=== PATIENT | female | born 1980 | race African-American/Black ===

== ENCOUNTER 2018-03-17 17:08 | Emergency (ER) | payer BC ==
[~2018-03-17] VITALS: Ht 165.1 cm; Wt 117.9 kg
[~2018-03-17 17:08] MED LIST: APAP/CODEINE ELI5 M1 OR; FLEXERIL PO; HYDROCODONE-AP1 EAC6 PO; LISINOPRIL10 MG PO; LISINOPRIL20 MG PO; NAPROSYN250 MG PO; NAPROSYN500 MG PO; PROTONIX40 M1 PO; ZPAK PO
[2018-03-17 17:44] LABS: URINE BILIRUBIN 1+ (Negative); URINE BLOOD 3+ (Negative); URINE CLARITY CLEAR; URINE COLOR YELLOW; URINE GLUCOSE-RANDOM* NEGATIVE (Negative); URINE KETONES NEGATIVE (Negative); URINE NITRITE-REFLEX NEGATIVE (Negative); URINE PROTEIN (DIPSTICK) 2+ (Negative); URINE SPECIFIC GRAVITY >= 1.030 (1.005-1.035); URINE UROBILINOGEN 0.2 E.U./dl (0.2-1.0)
[2018-03-17 17:45] LABS: URINE LEUKOCYTES-REFLEX 2+ (Negative)
[2018-03-17 17:47] LABS: ICTOTEST (BILI CONFIRMATORY) Positive (Negative)
[2018-03-17 17:55] LABS: BACTERIA-REFLEX 1-9 Few /HPF (None Seen); CASTS None Seen /LPF (None Seen); CRYSTALS None Seen /LPF (None Seen); SQUAMOUS 0-3 Few /LPF (0-3); URINE WBC-REFLEX >25 Many /HPF (0-5)
[2018-03-17 17:56] LABS: MUCUS 4-6 Moderate strn/LPF (None Seen); URINE RBC >20 Many /HPF (0-2)
[2018-03-17] MEDS ORDERED: KEFLEX500 M1 PO (18:00)
[2018-03-17] MEDS ORDERED: PHENAZOPYRIDIN200 M2 PO (18:10)
== END 2018-03-17 18:17 | disposition home or self-care (01) ==
LOC: ER 17:08
PROVIDERS: Nurse Practitioner Family
DX: N39.0 Urinary tract infection, site not specified (principal); I10 Essential (primary) hypertension; K21.9 Gastro-esophageal reflux disease without esophagitis; E11.9 Type 2 diabetes mellitus without complications

== ENCOUNTER 2020-02-18 08:18 | Inpatient (IN) | payer BC, OTHER ==
[~2020-02-18] VITALS: Ht 165.1 cm; Wt 136.1 kg
[~2020-02-18 08:18] MED LIST changes: +KEFLEX500 M1 PO; +PHENAZOPYRIDIN200 M2 PO
[2020-02-18 08:20] VITALS: BP 132/87
--- NOTE | 2020-02-18 08:25 | NUR ---
Pt reports back pain since September. Reports increasing in intensity starting Friday. Seen at [facility] ER on Friday. Given hydrocodone and pain medication.
[2020-02-18] MEDS ORDERED: METHYLPREDNISOLO4 M1 PO (08:27)
[2020-02-18] MEDS ORDERED: TIZANIDINE4 MG/1 TA1 PO (08:27)
[2020-02-18] MEDS ORDERED: PRAVASTATIN SOD10 MG PO (08:35)
[2020-02-18] MEDS ORDERED: NORCO 5-325 TA1 EAC1 PO (08:36)
[2020-02-18] MEDS ORDERED: PRINIVIL20 M1 PO (08:36)
--- NOTE | 2020-02-18 11:55 | NUR ---
Attempted to stand patient up at this time. Pt is unable to stand. Dr. Marc aware.
[2020-02-18 13:24] LABS: ABSOLUTE NEUTROPHILS 6.2 thou/uL (1.4-8.2); EOSINOPHILS 0.1 % (0.0-3.0); HEMATOCRIT 41.1 % (37.0-47.0); LYMPHOCYTES 23.2 % (24.0-44.0); MCH 26.2 pg (26.0-34.0); MCHC 33.9 g/dL (28.0-37.0); MCV 77.2 fL (80.0-100.0); MONOCYTES 6.1 % (1.0-8.0); PLATELET COUNT 262 thou/uL (150-400); POLYS 69.6 % (36.0-66.0); RBC 5.33 mil/uL (4.20-5.00); RDW 15.8 % (10.5-14.5); WBC 8.9 thou/uL (4.0-11.0)
[2020-02-18 13:30] VITALS: BP 116/61
[2020-02-18 13:32] LABS: CALCIUM 8.7 mg/dL (8.5-10.1); POTASSIUM 4.6 mmol/L (3.5-5.1)
[2020-02-18 16:00] VITALS: BP 136/68
[2020-02-18 16:19] VITALS: BP 128/71
--- NOTE | 2020-02-18 20:19 | NUR ---
Admitted pt from ER due to back pain. Transferred to bed safely. A+Ox4. On room air. Vital signs stable. Admission education, history and assessment done, forms signed. On regular diet- tolerated well; no nausea, no vomiting and no abdominal pain noted. Consult to Dr Romero called in, a/w call back from physician- shift leader nurse informed. Falls bundle in place. With SL at L AC- intact. Complained of pain, due PRN pain meds given as prescribed. No skin issues. Pt with past medical history of NIDDM, upon admission history and assessment, pt said she is not taking any meds for DM as well as not checking her blood sugars as well- shift leader nurse informed as well. To continue monitoring patient.
[2020-02-18 20:20] VITALS: BP 137/59
--- NOTE | 2020-02-19 02:45 | NUR ---
ASSUMED PT CARE AT APPROX 1900.PT C/O PAIN ON HER BACK,MANAGED WITH MED.ASSESSMENT COMPLETED.PT CONTINENT OF B&B.PT ABLE TO MAKE HER NEEDS KNOWN.UP TO BSC WITH ASSIST X1.FALL PRECAUTIONS IN PLACE,CALL LIGHT WITHIN REACH.
[2020-02-19 05:17] VITALS: BP 139/71
[2020-02-19 06:18] LABS: HEMATOCRIT 44.4 % (37.0-47.0); MCH 26.3 pg (26.0-34.0); MCHC 33.7 g/dL (28.0-37.0); MCV 78.1 fL (80.0-100.0); RBC 5.69 mil/uL (4.20-5.00); WBC 9.7 thou/uL (4.0-11.0)
[2020-02-19 06:37] LABS: CALCIUM 9.3 mg/dL (8.5-10.1); CREATININE 1.1 mg/dL (0.6-1.0); POTASSIUM 4.3 mmol/L (3.5-5.1)
[2020-02-19 06:56] LABS: URINE BILIRUBIN NEGATIVE (Negative); URINE BLOOD NEGATIVE (Negative); URINE CLARITY CLEAR; URINE COLOR YELLOW; URINE GLUCOSE-RANDOM* NEGATIVE (Negative); URINE KETONES NEGATIVE (Negative); URINE LEUKOCYTES-REFLEX NEGATIVE (Negative); URINE NITRITE-REFLEX NEGATIVE (Negative); URINE PROTEIN (DIPSTICK) NEGATIVE (Negative); URINE SPECIFIC GRAVITY 1.025 (1.005-1.035); URINE UROBILINOGEN 0.2 E.U./dl (0.2-1.0)
[2020-02-19 08:11] VITALS: BP 119/60
[2020-02-19 15:57] VITALS: BP 136/65
--- NOTE | 2020-02-19 19:43 | NUR ---
PT A&OX4. IV INTACT IN L AC. AMBULATED WITH PT TODAY PT STATES SHE FEELS MUCH BETTER THANN YESTERDAY, AMBULATED WITH PT. WILL CONT POC.
[2020-02-19 20:00] VITALS: BP 118/63
[2020-02-20 04:00] VITALS: BP 118/63
--- NOTE | 2020-02-20 04:07 | NUR ---
PT WAS OBSERVED AMBULATING IN THE HALLWAY WITH WALKER,GOOD ENDURANCE NOTED.PT COMPLAINED ABOUT PAIN,MANAGED WITH MED.PT REQUESTED AND RECEIVED FLEXERIL.PT TRIED TO HAVE A BM THIS SHIFT,WAS NOT SUCCESSFUL,MIRALAX OFFERED BUT SHE DIDN'T WANT IT.PT LATER RECEIVED PRUNE JUICE AND ORANGE JUICE TO HELP.PT RESTING ON HER BED AT THIS TIME.FAL PRECAUTIONS IN PLACE,CALL LIGHT WITHIN REACH.
[2020-02-20 07:11] VITALS: BP 111/50
[2020-02-20 15:27] VITALS: BP 101/53
--- NOTE | 2020-02-20 16:38 | NUR ---
Assumed pt care this am, pain was noted when she tried to walk on her right leg. Pain managed with medication and was asleep for most of the pain, pt was able to ambulate from the bed to the toilet this pm with minimal distress. Pt had a bm this am and took a shower this am. POC followed, progressing well towards goals.
[2020-02-20 19:28] VITALS: BP 95/66
[2020-02-21 03:39] VITALS: BP 117/62
--- NOTE | 2020-02-21 05:28 | NUR ---
ASSUMED PT CARE AROUND 1914. AXOX4. INDEPENDENT WITH ADLs. CALLS APPROPRIATELY FOR ASSISTANCE PRN. PAIN MANAGED PER MD ORDER. NO S/S ACUTE DISTRESS NOTED OR REPORTED AT THIS TIME. WILL CONT TO MONITOR FOR ANY CHANGES IN CONDITION.
[2020-02-21 07:18] VITALS: BP 132/79
--- NOTE | 2020-02-21 14:14 | NUR ---
PT ADMITTED RELATED TO [facility]. CM REVIEWED CHART AND SPOKE WITH CARE TEAM. CM CALLED AND SPOKE WITH PT AT BEDSIDE THIS DAY. PT APPEARS TO BE ALERT AND ORIENTED. PT INDICATED SHE LIVES IN AN APARTMENT ALONE. PT INDICATED THERE ARE 7-8 STEPS TO ENTER. PT INDICATED NO HH HX. PT INDICATED SHE HAD DONE OP PT BACK IN NOVEMBER. PT'S BROTHER AND MOTHER ARE HER EMERGENCY COMTACTS. CARE TEAM INDICATED THAT PT IS TO GET AN EPIDURAL TODAY. CM TO FOLLOW SHOULD ANY DC NEEDS ARISE.
--- NOTE | 2020-02-21 14:27 | NUR ---
PT CARE ASSUMED AT 0700. A&Ox4. PT UNDER A LOT OF PAIN WHEN I TOOK OVER HER CARE. PAIN MEDICATION GIVEN AND STEROIDS AND PAIN WENT ALL THE WAY DOWN TO A 1. PAIN CLINIC HAS BEEN CONSULTED. PT/OT ON BOARD. IV IS PATENT WITH NO REDNESS OR EDEMA. STAND BY ASSIST WITH BATHROOM PRIVILEDGES. CALL LIGHT IN REACH. WILL CONTINUE TO MONITOR.
[2020-02-21 16:40] VITALS: BP 140/69
[2020-02-21 19:28] VITALS: BP 138/72
[2020-02-22 04:13] VITALS: BP 127/70
--- NOTE | 2020-02-22 04:37 | NUR ---
RECIEVED CARE OF THIS PAITENT AT 1930. PATIENT ALERT AND ORIENTED X4. PATIENT UP IN ROOM. C/O MINOR PAIN, MED GIVEN WITH GOOD RELIEF. IV IN LAC. SLEPT MOST OF NIGHT.
--- NOTE | 2020-02-22 08:17 | NUR ---
High BMI 49.9, class III extreme obesity indicated. Admit with acute on chronic back pain, pain management. On regular diet eating 100% of meals. Low nutrition risk at this time.
[2020-02-22 08:26] VITALS: BP 113/59
[2020-02-22] MEDS ORDERED: NORCO 5-325 TA1 EAC1 PO (10:14)
[2020-02-22] MEDS ORDERED: DEXAMETHASONE 44 M1 PO (10:17)
[2020-02-22] MEDS ORDERED: FLEXERIL PO (10:20)
[2020-02-22 16:49] VITALS: BP 127/73
[2020-02-22 16:53] VITALS: BP 127/73
--- NOTE | 2020-02-22 17:58 | NUR ---
PT IS AOX4, VSS, PAIN IN BACK IS CONTROLLED WITH ORAL ANALGESIC. PT IV REMOVED, PT RECEIVED DISCHARGE INSTRUCTIONS. PT IS UP AD MANNY WITH STAND BY ASSIST WHEN IN PAIN. PT CURRENTLY WAITING FOR A RIDE TO PICK HER UP. PRESCRIPTIONS MEDS WERE CALLED IN TO THE PHARMACY BY PCP. PT VERBALIZED UNDERSTANDING OF DISCHARGE INSTRUCTIONS.
[2020-02-23] MEDS ORDERED: PERCOCET 5-3251 EACH PO (10:17)
== END 2020-02-22 18:50 | disposition home or self-care (01) | DRG 552 ==
LOC: ER 08:18 → 4S 13:53 → EROBS 13:53 → 4S 15:53
PROVIDERS: Emergency Medicine; ADMIT Hospitalist
DX: M54.41 Lumbago with sciatica, right side (principal); I10 Essential (primary) hypertension; K21.9 Gastro-esophageal reflux disease without esophagitis; E11.9 Type 2 diabetes mellitus without complications; E78.5 Hyperlipidemia, unspecified; F12.90 Cannabis use, unspecified, uncomplicated; Z79.899 Other long term (current) drug therapy
CPT/HCPCS: 10100; 10195

== ENCOUNTER → 2020-03-17 | Outpatient (CLI) | payer BC, OTHER ==
[~2020-03-17] VITALS: Ht 165.1 cm; Wt 134.4 kg
[~2020-03-17] MED LIST changes: +DEXAMETHASONE 44 M1 PO; +MELOXICAM15 MG PO; +METHYLPREDNISOLO4 M1 PO; +NEURONTIN300 MG PO; +NORCO 5-325 TA1 EAC1 PO; +PERCOCET 5-3251 EACH PO; +PRAVASTATIN SOD10 MG PO; +PRINIVIL20 M1 PO; +TIZANIDINE4 MG/1 TA1 PO
[2020-03-17 08:45] VITALS: BP 137/77
--- NOTE | 2020-03-17 09:01 | NUR ---
Pain Clinic Assessment: 1. History of Osteoarthritis: History of Rheumatoid Arthritis: 2. Height: 5 ft. 5 in. 165.1 cm. Weight: 296.2 lb. oz. 134.356 kg. Patient's BMI: 49.3 3. Vital Signs: BP: 137/77 Pulse: 97 Resp: 18 Temp: 02 Sat: 100 ECG Mon: 4. Pain Intensity: 1 5. Fall Risk: Dizziness: N Needs help standing or walking: N Fallen in the last 3 months: N Fall risk comments: 6. Patient on Blood Thinner: None 7. History of Hypertension: Y 8. Opioid Therapy greater than 6 weeks: N Opiate Contract Signed: 9. Risk Assessment Tool Provided: 1-LOW RISK 10. Functional Assessment Tool: 0 11. Recreational Drug Use: Never Drug Type: Tobacco Use: Never Smoker Tobacco Type: Amount or Packs/day: How Many Years: Alcohol Use: Yes Frequency: Weekly Quant: 3 DRINKS/WEEK
--- NOTE | 2020-03-29 15:55 | HPC ---
[facility] [address] [address] PAIN MANAGEMENT CONSULTATION Name: JEREMIAS ALBERT Room #: REG KAREN SortoLaureen#: [id number] Admission: 03/17/20 Attend Phys: Vimal Mills MD Discharge: Date of : 80 Report #: [id number] THIS REPORT FOR: cc: Ana Chambers MD,Vimal Manzanares MD, MD ~ CC: NAA Mills DATE OF SERVICE: 03/17/2020 CHIEF COMPLAINT: Lumbar pain with right leg discomfort. HISTORY: The patient is a 39-year-old female who has been referred to the Pain Clinic. The patient has had pain involving her right leg. It involves the top portion of her right side. She has also had some discomfort in the area of her foot. The pain started about 1 month ago. She does remember a fall in September. It started after that. The patient has had physical therapy in December. She felt that it improves somewhat. It has become more problematic in January. The pain has returned and has gotten progressively worse. It is now unbearable at this juncture. She has been unable to get out of bed because of it. Describes a sharp, shooting, throbbing, and stabbing pain. She sometimes has problems putting pressure on her leg. She walks somewhat with a lean to the right. Pain is worse in the morning. Notes pain improves somewhat when she lies on her back. Denies any new bowel or bladder dysfunction. She has tried medications as well as uses a heating pad. She was told that she has a bulging disk in her back. She has tried oral steroids. This provided minimal benefit. CURRENT MEDICATIONS: lisinopril 20 mg, pravastatin 10 mg, dexamethasone tablets in the past, Flexeril 10 mg, hydrocodone 5/325, and Percocet 5/325. ALLERGIES: No known drug allergies. PAST MEDICAL HISTORY: Urinary tract infection, hypertension. PAST SURGICAL HISTORY: Cholecystectomy, 09/16/2014. 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 REVIEW OF SYSTEMS: Generally good health, decreased appetite, fatigue, weakness, wears glasses, lightheadedness, dizziness, numbness and tingling sensation, memory loss/confusion. LABORATORY DATA: MRI of the lumbar spine dated 02/18/2020. At L3-L4, there is an extruded disk fragment along the inferior aspect of the disk space [place] [address] PAIN MANAGEMENT CONSULTATION Name: JEREMIAS ALBERT [id number] Admission: 03/17/20 Attend Phys: Vimal Mills MD Discharge: Date of : 80 Report #: [id number] vertebral body measuring 1.8 cm transverse x 4 mm AP and 1.1 cm craniocaudal. The central spinal canal is not grossly narrowed. There is no significant neural foraminal stenosis. At L4-L5, there is a sub ligamentous central and left paracentral disk protrusion. This contacts and impinges the left descending L5 nerve root in the lateral recess. The central spinal canal is not grossly narrowed. Bulging disk material and a facet osteophyte moderately narrows the left neural foramen. The L5-S1 area, there is no significant disk bulge. The central spinal canal is not grossly narrowed. There is no significant neural foraminal stenosis. PAIN CLINIC ASSESSMENT/PQRS: 1. The patient is not being treated for osteoarthritis. She is not being treated for rheumatoid arthritis. 2. Height 5 feet 5 inches, weight 296 pounds, BMI is 49.3. 3. Vital signs: Blood pressure 137/77, pulse 97, respiratory rate 18, room air saturation 100%. 4. Pain intensity, 11/12. 5. Fall history: The patient has not fallen in the last 3 months. 6. Blood thinner. The patient is not on a blood thinning medication. 7. Hypertension. The patient is being treated for hypertension. 8. Opioids greater than 6 weeks. The patient receives medications from her primary. 9. Risk assessment tool, low for opioid use. 10. Functional assessment tool, 0/70. 11. Recreational drugs. The patient denies. 12. Tobacco: The patient denies use of tobacco. 13. Alcohol: The patient drinks about 3 alcoholic beverages weekly. PHYSICAL EXAMINATION: GENERAL: The patient is a well-developed, well-nourished black female, appears her stated age. She is alert and oriented x 3. Her affect is appropriate. Speech is fluent. HEENT: Normocephalic, atraumatic. Extraocular eye muscles intact. Sclerae nonicteric. Mucous membranes are moist. NECK: Without adenopathy or JVD. HEART: Regular rate. ABDOMEN: Protuberant. Bowel sounds present. EXTREMITIES: Upper extremity muscle strength judged to be 5/5 for the major muscle groups in the upper extremity. The patient has pain and discomfort in the lower portion of her back with pain in the anterior portion of her left thigh. The patient has perception of some weakness in her thigh. IMPRESSION: 1. Lumbar radiculopathy in the L3-L4 dermatomal distribution with history of large extruded disk fragment at the L3-L4 area. 2. Hypertension. [address] [address] PAIN MANAGEMENT CONSULTATION Name: JEREMIAS ALBERT Room #: REG [facility]#: [id number] Admission: 03/17/20 Attend Phys: Vimal Mills MD Discharge: Date of : 80 Report #: [id number] RECOMMENDATIONS: We discussed treatment options with the patient. Risks and benefits of an epidural steroid injection were discussed. We discussed the possible complication of the procedure, which could include but are not limited to infection, worsening of pain, no improvement in pain, nerve damage and the patient is interested in proceeding. At this point, we will try a conservative approach. The patient is not on a regular nonsteroidal anti-inflammatory medication. We will try meloxicam 15 mg 1 p.o. daily. The patient will also try gabapentin 300 mg t.i.d. She will increase this dosing over a period of days. Hopefully, she will notice some pain and improvement. Should her pain continue to be problematic, she will return to the Pain Clinic, at which time, she will then consider undergoing an epidural steroid injection. We have discussed the risks and benefits with the patient. They include infection, muscle soreness, bleeding, nerve damage, spinal headache. We have also added the Caveat that the COVID-19 virus is present. Should the patient become infected with the virus around the time of the injection, she might note that she has a more difficult time over recovering from the virus. The steroid medications can decrease one's immunity. Overall, the patient will return to the Pain Clinic, at which time, we would then consider treatment. We will proceed with an epidural steroid injection. A script for her medications of meloxicam 15 mg 1 daily. A total of 30 tablets have been provided. The patient will also continue with Neurontin 300 mg t.i.d. We would like to thank you for letting us participate in her care. We hope she continues to improve. <ELECTRONICALLY SIGNED> By: Vimal Mills MD 03/29/20 [id number] Vimal Mills MD /nt
== END ==
LOC: PAIN 06:48
DX: M54.16 Radiculopathy, lumbar region (principal); I10 Essential (primary) hypertension; M19.90 Unspecified osteoarthritis, unspecified site; M06.9 Rheumatoid arthritis, unspecified; F11.90 Opioid use, unspecified, uncomplicated; Z90.49 Acquired absence of other specified parts of digestive tract

== ENCOUNTER → 2020-03-22 | Outpatient (CLI) | payer BC, OTHER ==
[~2020-03-22] VITALS: Ht 165.1 cm; Wt 134.3 kg
[2020-03-22 09:19] VITALS: BP 146/89
--- NOTE | 2020-03-22 09:38 | NUR ---
Pain Clinic Assessment: 1. History of Osteoarthritis: History of Rheumatoid Arthritis: 2. Height: 5 ft. 5 in. 165.1 cm. Weight: 296.0 lb. oz. 134.265 kg. Patient's BMI: 49.3 3. Vital Signs: BP: 146/89 Pulse: 106 Resp: 14 Temp: 02 Sat: 100 ECG Mon: 4. Pain Intensity: 4 5. Fall Risk: Dizziness: Y Needs help standing or walking: N Fallen in the last 3 months: N Fall risk comments: 6. Patient on Blood Thinner: None 7. History of Hypertension: Y 8. Opioid Therapy greater than 6 weeks: N Opiate Contract Signed: 9. Risk Assessment Tool Provided: 1-LOW RISK 10. Functional Assessment Tool: 0 11. Recreational Drug Use: Never Drug Type: Tobacco Use: Never Smoker Tobacco Type: Amount or Packs/day: How Many Years: Alcohol Use: Yes Frequency: Quant:
== END | disposition home or self-care (01) ==
LOC: PAIN 06:59
DX: M54.16 Radiculopathy, lumbar region (principal); G89.29 Other chronic pain; I10 Essential (primary) hypertension; Z98.890 Other specified postprocedural states; Z90.49 Acquired absence of other specified parts of digestive tract; Z79.899 Other long term (current) drug therapy